=== PATIENT | male | born 1975 | race Caucasian/White ===

== ENCOUNTER → 2023-04-27 06:38 | Day surgery (SDC) | payer OTHER, SELFPAY | LOC: GI 06:38 | PROVIDERS: ATTENDING PHYSICIAN Internal Medicine Gastroenterology | DX: Z12.11 Encounter for screening for malignant neoplasm of colon (principal); K57.30 Diverticulosis of large intestine without perforation or abscess without bleeding; K64.8 Other hemorrhoids | CPT/HCPCS: G0121 ==

== ENCOUNTER 2023-04-30 22:47 | Emergency (ER) | payer OTHER, SELFPAY ==
[2023-04-30 22:52] VITALS: BP 192/112
[2023-04-30 23:10] LABS: % Basophils 0.5 % (0-2); % Eosinophils 0.1 % (0-6); % Immature Granulocytes 0.4 % (0-0.5); % Lymphocytes 18.3 % (20.5-51.1); % Monocytes 7.4 % (1.7-9.3); % Neutrophils 73.3 % (42.2-75.2); Absolute Lymphocytes 1.5 10^3/uL (1.2-3.4); Absolute Monocytes 0.6 10^3/uL (0.1-0.6); Hematocrit 40.5 % (39.0-52.0); Hemoglobin 14.7 g/dL (13.0-18.0); Mean Corp Hgb Conc. 36.3 g/dL (33.0-37.0); Mean Corpuscular Hgb 31.5 pg (27.0-31.0); Mean Corpuscular Volume 86.9 fL (80.0-94.0); Mean Platelet Volume 9.4 fL (7.4-10.4); Nucleated Red Blood Cells % 0 % (-); Platelet Count 263 10^3/uL (130-400); Red Blood Cell Count 4.66 10^6/uL (4.70-6.10); Red Cell Dist. Width 12.9 % (11.5-14.5); White Blood Cell Count 8.2 10^3/uL (4.8-10.8)
--- NOTE | 2023-04-30 23:13 | ED.GENMED ---
History of Present Illness
<ИРИНА Adhikari - Last Filed: 04/30/23 23:46>
General
Chief Complaint: Breathing Problem
Source: patient and spouse
Exam Limitations: none
Time Seen by Provider: 04/30/23 22:52
Nursing documentation reviewed up to this point in time: agreed with
Travel History
Have you had any contact with someone who has COVID-19?: No
Do you have any symptoms of coronavirus? Fever > 100 degrees, chills, cough, shortness of breath, sore throat, loss of taste or smell, muscle aches, or headache?: No
History of Present Illness
History of Present Illness:
47 y/o M with no pertinent past medical history presents to ED c/o SOB x 1 hour. Patient works as a applications engineering manager in [employer] and reports he was supposed to go to [employer] but was not able to go. He states he began
hyperventilating due to the the stress and was feeling very anxious afterwards. He reports he did not have chest pain but his chest did feel tight while he was hyperventilating. He also reported associated numbness in his fingers/extremities and
reported he was clenching his hands. He reports his face felt very tight as well. Patient reports he is feeling calmer and better since he has been in the ED but is still a little anxious. He denies chest pain, arm pain, leg pain, back pain, vision
changes, facial numbness, difficulty talking, headache, nausea/vomiting, diarrhea, abdominal pain, or loss of control of bladder.
He reports no personal history of cardiac issues and is not on any medications. Patient does report family history of [place] and HTN. states patient saw PCP a few months ago and had elevated BP. He was advised to monitor BP, which states is
usually in 150s. Patient does not smoke.
If applicable-neuro sx onset
Onset of symptoms known: Yes
Date of onset of symptoms: 04/30/23
Past History
<ИРИНА Adhikari - Last Filed: 04/30/23 23:46>
Past History
ED Past Medical History: None
ED Past Surgical History: None
Social History
Tobacco: Non-smoker
Alcohol: Occasional
Drug: None
Personal:
Living: with family
Family History
Family History: Other (father with [place] )
Review of Systems
<ИРИНА Adhikari - Last Filed: 04/30/23 23:46>
Review of Systems
Allergies reviewed?: Yes
All Other Systems: ROS reviewed and negative except as documented in HPI and ROS
Constitutional: Reports no symptoms
EENT: Reports no symptoms
Respiratory: Reports trouble breathing
Cardiac: Reports other (chest tightness)
ABD/GI: Reports no symptoms
: Reports no symptoms
Musculoskeletal: Reports no symptoms
Skin: Reports no symptoms
Neurological: Reports numbness
Endocrine: Reports no symptoms
Hematologic/Lymphatic: Reports no symptoms
Psychiatric: Reports anxiety
Phy Exam
<ИРИНА Adhikari - Last Filed: 04/30/23 23:46>
General Physical Exam
General Presentation: mild distress
General age: appears stated age
General Skin: warm and dry
General Habitus: normal
General Mental: alert
General Hydration: appears well hydrated
ENT Exam
ENT Exam: EOMI, TM's normal and pharynx normal
Eye Exam
Eye Exam: PERRL, EOMI and conjunctiva normal
Cardiovascular Exam
Cardiovascular Exam: regular rate/rhythm, no edema, no gallop, no murmur and normal peripheral pulses
Pulmonary Exam
Pulmonary Exam: lungs clear, no respiratory distress, no rales, no crackles and no rhonchi
Neurological Exam
Neurological Exam: alert, oriented x3, no motor deficits and speech normal
Musculoskeletal Exam
Musculoskeletal Exam: full ROM
Skin Exam
Skin Exam: normal color, warm/dry and no rash
Psychiatric Exam
Psychiatric Exam: normal mood/affect and anxious
Scores
<ИРИНА Adhikari - Last Filed: 04/30/23 23:46>
Heart Failure Risk
History of Stroke or TIA: No
History of intubation for respiratory distress: No
Heart rate on ED arrival >/= 110: Yes
SaO2 <90% on arrival on room air: No
Heart Score for Chest Pain Patients
STEMI patient?: No
History: Slightly or Non-Suspicious
ECG: Normal
Age: >45 - <65 years
<Devora Meyer DO - Last Filed: 05/01/23 03:04>
Heart Failure Risk
Heart Failure Risk Score: Not Applicable
Heart Score for Chest Pain Patients
Risk Factors: 1 or 2 Risk Factors
Troponin: </= Normal Limit
Heart Score for Chest Pain Patients: 2
Heart Score Risk: 2.5% MACE over next 6 weeks
Course
<ИРИНА Adhikari - Last Filed: 04/30/23 23:46>
Orders/Labs/Results
Orders:
Orders
04/30/23 22:51
Electrocardiogram (*1) Urgent
Reason for Study: Shortness of Breath
EKG- Treatment ONCE
04/30/23 23:03
CMP [Comprehensive Metabolic Panel] Urgent
Complete Blood Count/With Diff Urgent
TSH Reflex To Free T4 Urgent
Comment: ADD ON
04/30/23 23:34
D-Dimer Urgent
Troponin I Urgent
04/30/23 23:44
Lorazepam [Ativan] 1 mg IV NOW STA
05/01/23 00:03
Add On- LAB Urgent
Tests Added?: TSH w reflex to free T-4
05/01/23 00:56
EKG- Treatment ONCE
CR Chest - 2 Views Urgent
Comment:
Reason For Exam: acute SOB, chest pressure
05/01/23 01:27
Troponin I Urgent
05/01/23 01:30
Electrocardiogram (*1) Urgent
Reason for Study: Chest Pain
Abnormal Lab Results
04/30/23
23:03
RBC 4.66 L 10^6/uL
(4.70-6.10)
MCH 31.5 H pg
(27.0-31.0)
Lymphocytes % 18.3 L %
(20.5-51.1)
Potassium 3.1 L mmol/L
(3.5-5.1)
Carbon Dioxide 20 L mmol/L
(22-30)
BUN 8 L mg/dl
(9-20)
Glucose 136 H mg/dl
(70-99)
Albumin 5.1 H g/dl
(3.5-5.0)
04/30/23 23:03
04/30/23 23:03
Vital Signs
Initial and Last Documented VS:
Initial Vital Signs
Temp Pulse Resp BP Pulse Ox
98.1 F 114 36 192/112 100
04/30/23 22:52 04/30/23 22:52 04/30/23 22:52 04/30/23 22:52 04/30/23 22:52
Last Documented Vital Signs
Temp Pulse Resp BP Pulse Ox
98.1 F 79 18 147/93 98
04/30/23 22:52 05/01/23 01:15 05/01/23 01:15 05/01/23 01:00 05/01/23 01:15
<Devora Meyer, DO - Last Filed: 05/01/23 03:04>
Orders/Labs/Results
Orders:
Orders
04/30/23 22:51
Electrocardiogram (*1) Urgent
Reason for Study: Shortness of Breath
EKG- Treatment ONCE
04/30/23 23:03
CMP [Comprehensive Metabolic Panel] Urgent
Complete Blood Count/With Diff Urgent
TSH Reflex To Free T4 Urgent
Comment: ADD ON
04/30/23 23:34
D-Dimer Urgent
Troponin I Urgent
04/30/23 23:44
Lorazepam [Ativan] 1 mg IV NOW STA
05/01/23 00:03
Add On- LAB Urgent
Tests Added?: TSH w reflex to free T-4
05/01/23 00:56
EKG- Treatment ONCE
CR Chest - 2 Views Urgent
Comment:
Reason For Exam: acute SOB, chest pressure
05/01/23 01:27
Troponin I Urgent
05/01/23 01:30
Electrocardiogram (*1) Urgent
Reason for Study: Chest Pain
Abnormal Lab Results
04/30/23
23:03
RBC 4.66 L 10^6/uL
(4.70-6.10)
MCH 31.5 H pg
(27.0-31.0)
Lymphocytes % 18.3 L %
(20.5-51.1)
Potassium 3.1 L mmol/L
(3.5-5.1)
Carbon Dioxide 20 L mmol/L
(22-30)
BUN 8 L mg/dl
(9-20)
Glucose 136 H mg/dl
(70-99)
Albumin 5.1 H g/dl
(3.5-5.0)
04/30/23 23:03
04/30/23 23:03
Vital Signs
Initial and Last Documented VS:
Initial Vital Signs
Temp Pulse Resp BP Pulse Ox
98.1 F 114 36 192/112 100
04/30/23 22:52 04/30/23 22:52 04/30/23 22:52 04/30/23 22:52 04/30/23 22:52
Last Documented Vital Signs
Temp Pulse Resp BP Pulse Ox
98.1 F 79 18 147/93 98
04/30/23 22:52 05/01/23 01:15 05/01/23 01:15 05/01/23 01:00 05/01/23 01:15
<ИРИНА Adhikari - Last Filed: 04/30/23 23:46>
MDM/Problems Addressed
Differential Diagnosis Includes:
PE
[place]
Stroke
Angina
Anxiety leading to respiratory alkalosis
MDM/Problems Addressed:
PE considered given patient is feeling SOB. Will order d-dimer to rule out. [place] considered given family history of [place] and angina. EKG normal. Will order troponins. Stroke considered but unlikely given patient is not having unilateral numbness,
tingling or difficulty speaking. No visual changes. Patient may have experienced panic attack leading to respiratory alkalosis which can cause the hand clenching and numbness/tingling.
Chronic conditions affecting care: HTN
<ИРИНА Adhikari - Last Filed: 04/30/23 23:46>
*Critical Care Note
Total Time (30-74mins, 75-104mins- exclusive of procedures): Not Applicable
<Devora Meyer DO - Last Filed: 05/01/23 03:04>
*Radiology
Radiology exam reviewed: preliminary read by ED provider (Chest x-ray is unremarkable. Clear lung mason. Normal heart size.)
*Pulse Oximetry
Patient hypoxic: no
*EKG
Interpreted by ED Provider?: Yes
Interpretation: normal
Comparison EKG: changes noted (Unchanged from previous save her heart rate has increased from the 60s to now 90 with new, mild global flattening of T waves compared to previous 2016.)
Rate: normal
Rhythm: sinus
[place]: normal axis
Interval: normal interval
QRS Pattern: normal QRS
Ischemia: no ischemia
*[employer] Generation Supervisor Interpretation
Rate: normal
Interpretation: normal
Rhythm: sinus
ED Attending Note
<ИРИНА Adhikari - Last Filed: 04/30/23 23:46>
-
Portions of this chart may have been created with voice recognition software.� Occasional wrong word or��sound alike� substitutions may have occurred due to the inherent limitations of voice recognition software.
<Devora Meyer DO - Last Filed: 05/01/23 03:04>
ED Attending Note
Patient seen and examined by attending physician: Yes
I performed the substantive portion of visit, reviewed & personally made and approve the management plan that is documented in note by myself or DRISS.: Yes
I performed a history and physical exam of patient and discussed management with resident, I reviewed resident's note and agree with documented findings and plan of care.: Yes
ED Attending Note:
This is a 47-year-old gentleman who has history of borderline hypertension, hyperlipidemia, remote history of renal cell carcinoma status post right nephrectomy 2016.
He admits to moderate stress, ongoing work related stress along with significant increase stress more recently due to travel plans [facility]. He was scheduled on a work-related air travel but plans were appropriately canceled today.
Tonight shortly after lying down to bed he admits to becoming acutely short of breath feeling anxious. Shortness of breath accompanied with mild chest pressure as well as circumoral numbness and tingling, tingling of his fingers which persisted and
progressed to bilateral carpal spasm.
No history of similar episodes in the past.
He denies alcohol or drug use.
Denies tobacco use.
Appetite has been good. No recent change in diet. He denies significant caffeine use nor energy drink use. Denies decongestant use. No change in weight.
Prior to tonight he had been feeling well, no recent URI nor GI symptoms. He denies cough nor fever. He does admit to intermittent chills tonight.
Since arrival to the ED he is feeling markedly improved but symptoms have not completely resolved.
He does have history of borderline hypertension and has been monitoring his blood pressure at home over the past 2 months which generally runs 140s to 150s systolic.
Records reviewed.
He underwent routine colonoscopy on April 27, showing sigmoid diverticulosis, small nonbleeding internal hemorrhoids otherwise unremarkable.
GENERAL: 47-year-old gentleman appears his stated age, lying supine on stretcher, preferentially keeping his eyes closed. is accompanying and she is answering most of the questions.
Patient is moderately anxious, intermittently hyperventilating, intermittently briefly tremulous. He is afebrile. Moderately hypertensive.
EYE: pupils equal and reactive. anicteric
NECK: Supple, nontender, no meningismus, no significant adenopathy.
ENT: posterior pharynx is clear, oral mucosa is minimally dry. TM clear b/l, nares patent.
CARDIAC: Regular rate and rhythm. no murmur.
LUNGS: Intermittently hyperventilating, clear breath sounds bilaterally, no rales or rhonchi no wheezing.
ABDOMEN: Soft, nondistended, without focal tenderness, no r/g, no cvat. normoactive BS.
NEUROLOGICAL: Alert and oriented x3, no focal neuro deficits. Intermittently briefly tremulous. No evidence of carpopedal spasm. No muscle rigidity.
SKIN: Warm and dry, normal color, skin intact. No rash.
MUSCULOSKELETAL: No C/C/E. peripheral pulses are full and equal b/l. No palpable tenderness.
PSYCH: Moderately anxious. Acute
Hyperventilation syndrome. Concern for ACS, pneumonia, CHF, viral syndrome, PE is less likely. Concern for acute anxiety/panic attack.
Other consideration is electrolyte abnormality, thyroid disorder.
No history of similar episodes in the past, Pheochromocytoma is much less likely.
EKG shows normal sinus rhythm, normal axis, normal intervals, no acute ST-T wave abnormalities. Compared to previous EKG 2016, heart rate is increased from 66 to now 95. T waves globally slightly flattened compared to previous.
Significant hypertension has moderately improved.
Patient currently denies pain, overall feeling better, less short of breath but continues with moderate anxiety.
Will check labs including troponin, D-dimer and will add TSH as well.
Will give an IV dose of Ativan and continue to observe.
Will consider imaging depending on results and clinical course.
05/01/2023 00:50 AM
Patient feeling markedly improved after IV dose of Ativan.
Now sleeping upon reevaluation. Awakens easily and once awake he reports no return of shortness of breath and complete resolution of chest discomfort. No further anxiety.
Labs thus far unremarkable save for mild hypokalemia at 3.1. I suspect hypokalemia related to hyperventilation/alkalosis.
Initial troponin 0.031.
D-dimer is negative.
Will plan to repeat troponin and EKG at 1:30 AM.
Blood pressure has improved to 150/90 and according to this is about his baseline.
Will check chest x-ray and continue to observe.
05/01/2023 02:45 AM
Patient continues to rest with no return of shortness of breath or chest discomfort.
Repeat EKG similar to previous showing a minimally flipped T waves in lead III otherwise unremarkable.
Repeat troponin remains flat, 0.032.
Chest x-ray is unremarkable, normal heart size, clear lung mason.
Will discharge to home with recommendation for prompt follow-up with PCP for recheck and repeat blood pressure evaluation and recommend they bring along their home BP readings as I suspect patient will require initiation of an antihypertensive
medication.
Due to hypertension, family history of coronary artery disease in father, will refer to our chest pain hotline as well.
Return precautions discussed.
Discharge Plan
Departure
Patient Disposition: Home (Routine Discharge)
Date of Disposition: 05/01/23
Time of Disposition: 02:55
Patient with high blood pressure during this ER visit?: Yes
Condition: Good
Discharge Problem:
Nonspecific chest pain, Acute hyperventilation syndrome
Instructions: Hyperventilation, Chest Pain DCA Follow Up, BLOOD PRESSURE
Prescriptions:
No Action
oxycodone-acetaminophen 5 MG/325 MG tablet
1 tab PO Q4HPRN PRN (Reason: moderate to severe pain) Qty: 15 0RF
Referrals:
German Parikh MD [Family Provider] - Call in 1-3 days for appt
Interventions
Interventions:
*Risk Screen - Suicide Last Done: 05/01/23 00:44
*General Assessment Last Done: 05/01/23 00:44
*Neglect/Abuse Screening Last Done: 05/01/23 00:44
ED- Cardiac Assessment Last Done: 04/30/23 23:15
ED-Psychological Assessment Last Done: 04/30/23 23:15
ED- Pulmonary Assessment Last Done: 04/30/23 23:15
[2023-04-30 23:23] LABS: ALT (SGPT) 23 U/L (0-50); AST (SGOT) 27 U/L (17-59); Albumin 5.1 g/dl (3.5-5.0); Alkaline Phosphatase 96 U/L (38-126); Blood Urea Nitrogen 8 mg/dl (9-20); Calcium 9.8 mg/dl (8.4-10.2); Carbon Dioxide 20 mmol/L (22-30); Chloride 102 mmol/L (98-107); Glucose 136 mg/dl (70-99); Potassium 3.1 mmol/L (3.5-5.1); Sodium 135 mmol/L (135-145); Total Bilirubin 0.7 mg/dl (0.2-1.3); Total Protein 7.8 g/dl (6.3-8.2); eGFR > 60.00
[2023-04-30] MEDS: ATIVAN 1 MG IV (23:53)
[2023-04-30 23:59] LABS: D-Dimer < 0.27 ug/mlFEU (0.00-0.50)
[2023-05-01] VITALS: BP 154/97
[2023-05-01 00:13] LABS: Troponin I 0.031 ng/ml
[2023-05-01 01:00] VITALS: BP 147/93
[2023-05-01 01:17] LABS: TSH Reflex To Free T4 2.29 uIU/ml (0.47-4.68)
[2023-05-01 02:08] LABS: Troponin I 0.032 ng/ml
[2023-05-01 03:00] VITALS: BP 135/94
== END 2023-05-01 03:44 | disposition home or self-care (01) ==
LOC: EMR 22:47
PROVIDERS: EMERGENCY PHYSICIAN Emergency Medicine; FAMILY PHYSICIAN Family Medicine
DX: F45.8 Other somatoform disorders (principal); R07.9 Chest pain, unspecified; I10 Essential (primary) hypertension; E78.5 Hyperlipidemia, unspecified; Z90.5 Acquired absence of kidney; Z82.49 Family history of ischemic heart disease and other diseases of the circulatory system
CPT/HCPCS: 99285; 96374; 71046; 80053; 84443; 84484; 85025; 85379; 93005

== ENCOUNTER → 2024-05-05 10:16 | Outpatient (REF) | payer OTHER, SELFPAY | LOC: HWRCS 10:16 | PROVIDERS: ATTENDING PHYSICIAN Internal Medicine; FAMILY PHYSICIAN Physician Assistant | DX: I10 Essential (primary) hypertension (principal); R00.2 Palpitations | CPT/HCPCS: 93306 ==

== ENCOUNTER → 2025-02-03 13:42 | Outpatient (REF) | payer OTHER, SELFPAY | LOC: RCS 13:42 | PROVIDERS: ATTENDING PHYSICIAN Internal Medicine; FAMILY PHYSICIAN Physician Assistant | DX: R07.9 Chest pain, unspecified (principal); R00.2 Palpitations | CPT/HCPCS: 93017; 93350 ==